=== PATIENT | male | born 1965 | race Caucasian/White ===

== ENCOUNTER 2020-07-16 08:20 | Emergency (ER) | payer OTHER ==
[~2020-07-16] VITALS: Ht 182.9 cm; Wt 77.1 kg
[2020-07-16 08:39] VITALS: Ht 182.9 cm; Wt 77.1 kg
[2020-07-16] MEDS ORDERED: MOT600 PO (10:52)
[2020-07-16 11:05] VITALS: BP 136/86
== END 2020-07-16 11:05 | disposition home or self-care (01) ==
LOC: ED 08:20
DX: S82.401A Unspecified fracture of shaft of right fibula, initial encounter for closed fracture (principal); X50.1XXA Overexertion from prolonged static or awkward postures, initial encounter; Y93.89 Activity, other specified; Y92.89 Other specified places as the place of occurrence of the external cause; Y99.8 Other external cause status